=== PATIENT | male | born 1940 | race Caucasian/White ===

== ENCOUNTER 2018-07-31 18:36 | Emergency (ER) | payer OTHER ==
[~2018-07-31] VITALS: Ht 167.6 cm; Wt 64.6 kg
[~2018-07-31 18:36] MED LIST: ATOR20TA PO; FINA5TAB4 PO; LATA2.5D2 EACHEYE; TAMS-11 PO; TAMS0.4C2 PO
[2018-07-31] MEDS ORDERED: AMLO10TA6 PO (19:00)
[2018-07-31 19:08] LABS: BASOPHILS # (AUTO) 0.05 x10^3/uL (0-0.1); BASOPHILS % (AUTO) 1 % (0-1); EOSINOPHILS # (AUTO) 0.11 x10^3/uL (0-0.4); EOSINOPHILS % (AUTO) 2 % (1-7); LYMPHOCYTES # (AUTO) 1.89 x10^3/uL (1-3.4); LYMPHOCYTES % (AUTO) 30 % (22-44); MD NO; MEAN CORPUSCULAR HEMOGLOBIN 32.5 pg (27.5-34.5); MEAN CORPUSCULAR HGB CONC 33.7 g/dL (33.2-36.2); MEAN CORPUSCULAR VOLUME 96.4 fL (81-97); MEAN PLATELET VOLUME 8.4 fL (7.4-10.4); MONOCYTES # (AUTO) 0.48 x10^3/uL (0.2-0.8); MONOCYTES % (AUTO) 8 % (2-9); NEUTROPHILS # (AUTO) 3.84 x10^3/uL (1.8-6.8); NEUTROPHILS % (AUTO) 60 % (42-75); PLATELET COUNT 225 x10^3/uL (130-400); RED CELL DISTRIBUTION WIDTH 13.7 % (9.4-14.8)
[2018-07-31 19:20] LABS: ALBUMIN 4.2 g/dL (3.4-5.0); ANION GAP 9 mmol/L (5-15); CALCIUM 8.9 mg/dL (8.5-10.1); CHLORIDE 107 mmol/L (98-107); CREATININE 0.96 mg/dL (0.7-1.3)
[2018-07-31 19:24] LABS: TROPONIN I < 0.015 ng/mL (0.000-0.045)
[2018-07-31 20:23] VITALS: BP 138/76
== END 2018-07-31 21:08 | disposition home or self-care (01) ==
LOC: ED 21:06
DX: I10 Essential (primary) hypertension (principal); R53.1 Weakness; I25.10 Atherosclerotic heart disease of native coronary artery without angina pectoris; Z95.5 Presence of coronary angioplasty implant and graft
CPT/HCPCS: 36415; 71045; 80048; 82040; 83880; 84484; 85025; 93005; 99285

== ENCOUNTER 2018-10-10 13:49 | Day surgery (SDC) | payer OTHER ==
[2018-09-27 10:35] VITALS: BP 135/74
[~2018-10-10] VITALS: Ht 167.6 cm; Wt 64.1 kg
[~2018-10-10 13:49] MED LIST changes: +AMLO10TA6 PO
[2018-10-10] MEDS ORDERED: LACTATED RINGERS 1,000 ML IV SCH (13:55)
[2018-10-10] MEDS ORDERED: GABAPENTIN 300 MG CAPSULE PO ONE (14:00)
[2018-10-10] MEDS ORDERED: ONDANSETRON ODT 8 MG PO ONE (14:00)
[2018-10-10] MEDS ORDERED: ACETAMINOPHEN 500 MG TABLET PO ONE (14:00)
[2018-10-10] MEDS ORDERED: ACETAMINOPHEN 500 MG TABLET ONE (14:15)
[2018-10-10] MEDS ORDERED: ONDANSETRON ODT 8 MG ONE (14:16)
[2018-10-10] MEDS ORDERED: GABAPENTIN 300 MG CAPSULE ONE (14:17)
[2018-10-10] MEDS ORDERED: MIDAZOLAM 1 MG/ML, 2ML ONE (15:29)
[2018-10-10] MEDS ORDERED: FENTANYL PF 100 MCG/2ML ONE (15:29)
[2018-10-10] MEDS ORDERED: BUPIVACAINE/PF 0.25% ONE (15:56)
[2018-10-10] MEDS ORDERED: BUPIVACAINE/PF-EPI 0.5% 1:200K ONE (15:56)
[2018-10-10] MEDS ORDERED: BACITRACIN 50,000 UNIT ONE (15:56)
[2018-10-10] MEDS ORDERED: EPINEPHRINE 1 MG/ML, 1ML ONE (15:57)
[2018-10-10] MEDS ORDERED: PHENYLEPHRINE 10 MG/ML ONE (16:34)
[2018-10-10] MEDS ORDERED: BUPIVACAINE/PF 0.5% ONE (17:54)
[2018-10-10] MEDS ORDERED: LIDOCAINE-MPF 2% ,5ML ONE (17:55)
[2018-10-10] MEDS ORDERED: DEXAMETHASONE 4 MG/ML, 1ML ONE (17:55)
[2018-10-10] MEDS ORDERED: CEFAZOLIN 1,000 MG ONE (17:55)
[2018-10-10] MEDS ORDERED: PROPOFOL 10 MG/ML, 20ML ONE (17:55)
[2018-10-10] MEDS ORDERED: LABETALOL 5MG/ML, 20ML IV PRN (18:00)
[2018-10-10] MEDS ORDERED: hydrALAzine 20 MG/ML, 1ML IV PRN (18:00)
[2018-10-10] MEDS ORDERED: HYDROmorphone 2 MG/ML, 1ML IVPush PRN (18:00)
[2018-10-10] MEDS ORDERED: ONDANSETRON 2MG/ML, 2ML IV PRN (18:00)
[2018-10-10] MEDS ORDERED: FENTANYL PF 100 MCG/2ML IV PRN (18:00)
[2018-10-10] MEDS ORDERED: ALBUTEROL/IPRATROPIUM 2.5MG/0.5MG, 3 ML NPPB PRN (18:00)
[2018-10-10] MEDS ORDERED: OXYcodone 5 MG/5 ML ORAL.SOL UDC PO PRN (18:00)
== END 2018-10-10 21:15 | disposition home or self-care (01) ==
LOC: OR 13:49 → 4NOR 19:15 → OR 21:15
PROVIDERS: ATTEND Orthopaedic Surgery
DX: S52.292A Other fracture of shaft of left ulna, initial encounter for closed fracture (principal); X58.XXXA Exposure to other specified factors, initial encounter; Y93.89 Activity, other specified; Y92.89 Other specified places as the place of occurrence of the external cause; Y99.8 Other external cause status; H40.9 Unspecified glaucoma; I25.10 Atherosclerotic heart disease of native coronary artery without angina pectoris; I10 Essential (primary) hypertension
CPT/HCPCS: 20902; 25545; 64415; 73090; 76000; C1713; J0171; J0690; J1100; J2250; J2370; J2704; J3010; J3490; J7120; Q0162; G0378